=== PATIENT | female | born 1965 | race Caucasian/White ===

== ENCOUNTER 2018-10-18 08:49 | Day surgery (SDC) | payer OTHER, SELFPAY ==
[2018-10-04 08:46] VITALS: BMI 19.8
[2018-10-18 09:07] VITALS: BP 135/87; PULSE 67; RESP 17; TEMP 36.2; O2SAT 96; BMI 19.8
[2018-10-18] MEDS: LACTATED RINGERS 1,000 ML 42 ML IV (09:31)
--- NOTE | 2018-10-18 09:56 | SUR.OPER ---
Lateral on padded OR bed with dkue bag positioner, head on pillow, gel axillary roll in place, bottom leg bent with gel pad under knee to foot, upper leg straight and supported with pillows. Operative arm secured in shoulder positioning suspension device. non-operative arm secured on padded arm board. Safety belt at hip, tape over blanket securing lower legs.
--- NOTE | 2018-10-18 10:02 | PM.PREOP ---
Pre-operative Note Interval Note Pre-op Check: Yes History & Physical Reviewed by Physician and Yes Exam Performed Changes: No
--- NOTE | 2018-10-18 10:02 | PM.OP.1 ---
Operative Date/Time/Diagnoses Date of procedure: 10/18/18 Time of procedure: 11:45 Pre-op diagnosis: Left shoulder rotator cuff tear Post-op diagnosis: same Procedure & Clinicians Procedure: Left shoulder arthroscopic rotator cuff repair Same procedure as scheduled: Yes Indications: Patient is a 53-year-old woman who has had left shoulder pain that has not responded to nonoperative measures. An MRI has revealed a rotator cuff tear. After discussion of the risks benefits and alternatives she has agreed to surgery. Risks discussed included but were not limited to: Failure to improve either pain or function, stiffness, infection, nerve damage, deep venous thrombosis, pulmonary embolism, stroke, myocardial infarction, permanent paralysis and . Surgeon: Teddy Doyle [employer] Consultant: Mecca Fall Click Yes if Unassisted: No Anesthesia Type: General, Peripheral nerve block and Local Operative Notes Findings: 1. Normal glenohumeral cartilage 2. Normal glenohumeral labrum 3. Normal biceps 4. Normal glenohumeral ligaments 5. Normal subscapularis 6. Slit light tear at the anterior aspect of the supraspinatus with approximately 1 cm exposed greater tuberosity and extension approximately 2 cm medial to lateral 7. Intact infraspinatus 8. Normal axillary pouch 9. Bursal rotator cuff notable for the above mentioned rotator cuff tear 10. Minimal curve to the acromion with a small impingement lesion. I did not feel this mandated subacromial decompression. 11. Acromioclavicular joint not visualized 12. Exam under anesthesia notable for full range of motion and no evidence for pathologic laxity. Closure Type: primary Specimen(s): none sent Implants & Drains: One Mitek Healix Advance BR 5.5 mm double threaded anchor Applied: implant(s) Estimated Blood Loss (mL): 5 Blood products transfused: none Procedure in detail: The patient was seen in the preoperative area where she identified her left shoulder as the operative site and this was marked with my initials. She received appropriate 1st generation cephalosporin as preoperative antibiotics and underwent an interscalene block for postoperative pain control. She was then transported to the operating room and placed on the operating room table in a supine position where she underwent general anesthetic. She was repositioned in the right lateral decubitus position with an axillary roll and padding for all pressure points. She was stabilized in this position using the beanbag and adhesive tape. An exam of the shoulder had been performed prior to repositioning. A multimedia developer-out was performed. The left arm was prepared from fingertips to the base of the neck with ChloraPrep in the usual fashion drape through sterile drapes. The left arm was placed in 10 lb of balanced skin suspension. The subcutaneous landmarks were outlined on the skin with a marking pen and portal sites selected. The posterior portal was created and the arthroscope inserted into the glenohumeral joint. Diagnostic arthroscopy ensued with the result given above. The arthroscope was then withdrawn and placed in the subacromial space through the posterior portal. A lateral portal was created in line with the rotator cuff tear after localization with the needle. I elected not to perform a subacromial decompression based on the patient's acromial morphology. The greater tuberosity was cleaned to bleeding bone using the shaver. An accessory superolateral portal was created and an anchor inserted into the greater tuberosity. A free Orthocord suture was used to do a ssko-au-cyld stitch in the most medial aspect of the cuff tear. The sutures from the anchor were then placed lateral to that 1 limb anteriorly and 1 limb posteriorly. The sutures were then sequentially tied which nicely reapproximated the tear from anterior to posterior and brought it down into the greater tuberosity. At this point all arthroscopic equipment was removed. The wounds were closed with 4 0 Monocryl and Steri-Strips. The subacromial space and subcutaneous tissues were injected with a total of 20 mL 0.5% Marcaine for postoperative pain control. Dressings of sterile 4x4s, an ABD and adhesive dressing were applied followed by sling. The patient was then transferred to the recovery room in good condition having tolerated the procedure well. Complications: none Condition: stable Disposition: PACU Plan for aftercare: The patient will be maintained on a standard small size rotator cuff tear protocol with 6 weeks of passive range of motion and sling wear.
[2018-10-18] MEDS: MIDAZOLAM 2 MG/2 ML VIAL IV (10:08)
[2018-10-18] MEDS: CLINDAMYCIN 900 MG/50 ML PIGGYBACK 50 MG IV (10:30)
--- NOTE | 2018-10-18 11:00 | P.PCN_ITS ---
Procedures Date/Time Date of procedure: 10/18/18 Time of procedure: 10:17 Nerve Block Time out performed: Yes Local anesthetic used: other (15mL 0.5 opivacaine, 5mL 2* idocaine) Location of anesthetic used: interscalene Amount of anesthesia used (mL): 20 Nerve blocks: brachial plexus (interscalene) Procedure successful: Yes Patient tolerated procedure: well Complications: none Additional comments: Brachial plexus nerve block for post operative pain management. Risks and benefits discussed, including bleeding, infection, intravascular injection, nerve damage, block failure. Standard ASA monitors, NC O2. Pt supine. Chloroprep site preparation, sterile technique. Brachial plexus identified with US guidance, traced from supraclavicular to interscalene. 1mL 2% lidocaine skin wheal. 22g x 50mm Pajunk advanced with in- plane US guidance to brachial plexus. Negative aspiration. LA injected with intermittent negative aspiration. Good LA spread noted on US. No pain, no paraesthesia. Pt tolerated procedure well. Vital signs stable.
[2018-10-18] MEDS: SODIUM CHLORIDE IRRIG SOLUTION 3,000 ML, EPINEPHrine 1 MG IRR (11:27)
[2018-10-18] MEDS: BUPIVACAINE 0.5% W/ EPI (PF) VIAL 30 ML INJ (11:39)
[2018-10-18 12:00] VITALS: BP 121/79; PULSE 69; RESP 12; TEMP 36.1; O2SAT 100
[2018-10-18 12:05] VITALS: BP 113/72; PULSE 68; RESP 13; O2SAT 96
[2018-10-18 12:10] VITALS: BP 135/87; PULSE 64; RESP 14; O2SAT 96
[2018-10-18 12:15] VITALS: BP 144/83; PULSE 58; RESP 14; TEMP 36.6; O2SAT 97
--- NOTE | 2018-10-18 12:37 | SUR.PHASEII ---
GAVE REPORT AND PATIENT TO SUSI PAGE.
[2018-10-18 12:45] VITALS: BP 124/86; PULSE 59; RESP 20; TEMP 36.6; O2SAT 96
== END 2018-10-18 12:50 | disposition home or self-care (01) ==
PROVIDERS: Visit Provider Orthopaedic Surgery
PROC: (CPT 29827; principal; 2018-10-18 10:15)
DX: M75.122 Complete rotator cuff tear or rupture of left shoulder, not specified as traumatic (principal); M75.42 Impingement syndrome of left shoulder; G89.18 Other acute postprocedural pain; I10 Essential (primary) hypertension; M19.90 Unspecified osteoarthritis, unspecified site; I44.7 Left bundle-branch block, unspecified; I48.91 Unspecified atrial fibrillation; R01.1 Cardiac murmur, unspecified; X50.1XXA Overexertion from prolonged static or awkward postures, initial encounter; Y93.53 Activity, golf
CPT/HCPCS: 29827; 64415; J0171; J1100; J2250; J2405; J2704; J3010